=== PATIENT | male | born 1990 | race Caucasian/White ===

== ENCOUNTER 2023-01-02 14:25 | Emergency (ER) | payer OTHER ==
[~2023-01-02] VITALS: Ht 172.7 cm; Wt 98.9 kg
[2023-01-02] MEDS ORDERED: IBUP200T46 PO (14:40)
[2023-01-02] MEDS ORDERED: OMEP40CA4 PO (14:40)
[2023-01-02] MEDS ORDERED: ACETAMINOPHEN 500 MG TAB PO ONE (14:45)
[2023-01-02] MEDS ORDERED: KETOROLAC 30 MG/ML 1ML VIAL IV ONE ×2 (17:45→19:30)
[2023-01-02] MEDS ORDERED: NS 1,000 ML IV ONE (17:45)
[2023-01-02 18:47] LABS: BASO % 0.2 % (0.0-1.0); HEMATOCRIT 43.1 % (42.0-52.0); HEMOGLOBIN 14.7 g/dl (13.5-17.5); LYMPH # 0.5 10^3/uL (1.5-5.0); LYMPH % 2.8 % (24.0-44.0); MEAN CORPUSCULAR HEMOGLOBIN 29.8 pg (27.0-33.0); MEAN CORPUSCULAR HGB CONC 34.1 g/dl (32.0-36.5); MEAN CORPUSCULAR VOLUME 87.2 fl (80.0-96.0); MONO # 1.3 10^3/uL (0.0-0.8); MONO % 8.2 % (2.0-8.0); NEUTROPHILS # 14.4 10^3/uL (1.5-8.5); NEUTROPHILS % 87.9 % (36.0-66.0); PLATELET COUNT, AUTOMATED 255 10^3/uL (150-450); RED BLOOD COUNT 4.94 10^6/uL (4.30-6.10); WHITE BLOOD COUNT 16.4 10^3/uL (4.0-10.0)
[2023-01-02 19:07] LABS: LIPASE 28 U/L (12-53)
[2023-01-02 19:10] LABS: ALBUMIN 4.2 G/DL (3.2-5.2); ALKALINE PHOSPHATASE 70 U/L (46-116); ALT/SGPT 49 U/L (7.0-40); AST/SGOT 26 U/L (<34); BILIRUBIN,TOTAL 1.4 MG/DL (0.3-1.2); BLOOD UREA NITROGEN 12 MG/DL (9-23); CALCIUM LEVEL 9.1 MG/DL (8.5-10.1); CARBON DIOXIDE LEVEL 26 MMOL/L (20-31); CHLORIDE LEVEL 103 MMOL/L (98-107); CREATININE FOR GFR 0.97 MG/DL (0.70-1.30); GLOMERULAR FILTRATION RATE > 60.0 (>60); GLUCOSE, FASTING 124 MG/DL (60-100); POTASSIUM SERUM 3.7 MMOL/L (3.5-5.1); SODIUM LEVEL 137 MMOL/L (136-145); TOTAL PROTEIN 7.3 G/DL (5.7-8.2)
[2023-01-02] MEDS ORDERED: ISOVUE-370 76% 100ML VIAL As Ordered ONE (19:22)
[2023-01-02] MEDS ORDERED: HOME MED LIST COMPLETE! XX SCH (20:15)
[2023-01-02 20:29] VITALS: BP 119/67
[2023-01-02 20:56] LABS: GC DNA AMPLIFICATION NEGATIVE (NEGATIVE)
[2023-01-02] MEDS ORDERED: DOXYCYCLINE HYCLATE 100MG TABLET PO ONE (21:10)
[2023-01-02] MEDS ORDERED: DOXY100C3 PO (21:15)
[2023-01-02] MEDS ORDERED: NAPR-837 PO (21:15)
== END 2023-01-02 22:14 | disposition home or self-care (01) ==
LOC: M ED 14:25
DX: D72.829 Elevated white blood cell count, unspecified (principal); R50.9 Fever, unspecified; R59.0 Localized enlarged lymph nodes; Z79.899 Other long term (current) drug therapy
CPT/HCPCS: 74177; 80053; 81001; 83605; 83690; 85025; 87040; 87486; 87581; 87633; 87661; 87798; 87810; 87850; 96374; 96376; 99284; J1885; Q9967